=== PATIENT | male | born 1970 | race Hispanic/Latino ===

== ENCOUNTER 2018-08-02 11:07 | Emergency (ER) | payer SELFPAY ==
[2018-08-02] MEDS ORDERED: BUPIVACAINE 0.25% PF 10 ML VIAL ONE (11:58)
[2018-08-02] MEDS ORDERED: CEFTRIAXONE 1000 MG/VIAL ONE (11:58)
[2018-08-02] MEDS ORDERED: LIDOCAINE 1% MPF 5 ML VIAL ONE (11:58)
[2018-08-02] MEDS ORDERED: TETANUS & DIPHTHERIA TOX,ADULT 0.5 ML VIAL ONE (11:59)
--- NOTE | 2018-08-02 12:22 | EDPHYS ---
Physician Documentation [facility] Name: Beau Barnes Age: 48 yrs Sex: Male : 1970 Arrival Date: 08/02/2018 Time: 11:09 Bed 10 Private MD: ED Physician Alexi Lopze HPI: 08/02 12:12 This 48 yrs old Male presents to ER via Ambulatory with complaints of Finger gs Injury. 12:12 The patient or guardian reports injury, amputation of finger tip. The complaints affect gs the DIP of right index finger. Context: resulted from a direct blow, rope or cable. Onset: The symptoms/episode began/occurred yesterday. Associated signs and symptoms: Pertinent negatives: fever. Associated signs and symptoms: Pertinent negatives: active bleeding. Severity of symptoms: At their worst the symptoms were severe, in the emergency department the symptoms are unchanged. The patient has not experienced similar symptoms in the past. Historical: - Allergies: 12:00 NKA; iw - Home Meds: 12:00 enalapril maleate 10 mg Oral tab 1 tab 2 times per day [Active]; iw - PMHx: 12:00 Hypertension; iw - PSHx: 12:00 back; iw - Immunization history:: Adult Immunizations unknown. - Social history:: Smoking status: Patient/guardian denies using tobacco. - Ebola Screening: : Patient negative for fever greater than or equal to 101.5 degrees Fahrenheit, and additional compatible Ebola Virus Disease symptoms Patient denies exposure to infectious person Patient denies travel to an Ebola-affected area in the 21 days before illness onset No symptoms or risks identified at this time. ROS: 12:12 All other systems are negative. gs Exam: 12:12 Head/Face: Normocephalic, atraumatic. Neck: Trachea midline, no thyromegaly or masses gs palpated, and no cervical lymphadenopathy. Supple, full range of motion without nuchal rigidity, or vertebral point tenderness. No Meningismus. Cardiovascular: Regular rate and rhythm with a normal S1 and S2. No gallops, murmurs, or rubs. Normal PMI, no JVD. No pulse deficits. Respiratory: Lungs have equal breath sounds bilaterally, clear to auscultation and percussion. No rales, rhonchi or wheezes noted. No increased work of breathing, no retractions or nasal flaring. Abdomen/GI: Soft, non-tender, with normal bowel sounds. No distension or tympany. No guarding or rebound. No evidence of tenderness throughout. Back: No spinal tenderness. No costovertebral tenderness. Full range of motion. Skin: Warm, dry with normal turgor. Normal color with no rashes, no lesions, and no evidence of cellulitis. Neuro: Awake and alert, GCS 15, oriented to person, place, time, and situation. Cranial nerves II-XII grossly intact. Motor strength 5/5 in all extremities. Sensory grossly intact. Cerebellar exam normal. Normal gait. 12:12 Constitutional: The patient appears alert, awake, uncomfortable. 12:12 Musculoskeletal/extremity: Extremities: full amputation just above r second pip, has pretty good bone coverage, and may be able to keep distal joint with a skin graft, Pulses: are normal with no appreciated deficits, Sensation intact. Vital Signs: 12:00 BP 154 / 74; Pulse 84; Resp 16; Temp 98.2; Pulse Ox 100% on R/A; Pain 5/10; iw Procedures: 12:12 Nerve block: (digital) of r index base. Medication: .25 marcaine, Amount: 2 mls were gs injected, Performed by Alexi Lopez MD. MDM: 11:38 Patient medically screened. gs 12:12 Data reviewed: vital signs, nurses notes. ED course: wound cleaned, pt wants to get gs treated definitively at his home area. 08/02 11:39 Order name: Hand Right 3 View XRAY; Complete Time: 12:45 gs Administered Medications: 11:58 Drug: Tetanus-Diphtheria Toxoid Adult 0.5 ml {Detention Attendant: [employer]. Exp: iw 06/19/2020. Lot #: [id number]. } Route: IM; Site: left deltoid; 12:00 Follow up: Response: No adverse reaction iw 12:05 Follow up: Response: No adverse reaction iw 11:58 Drug: Rocephin (cefTRIAXone) 1 grams Route: IM; Site: left gluteus; iw 12:10 Follow up: Response: No adverse reaction iw 12:10 Follow up: Response: No adverse reaction iw 12:15 Drug: Marcaine (0.25 %) 2 ml Route: Infiltration; iw 12:30 Follow up: Response: No adverse reaction iw Disposition: 08/02/18 12:22 Discharged to Home. Impression: amputation distal phalanx right index. - Condition is Stable. - Discharge Instructions: Traumatic Finger Amputation. - Prescriptions for Keflex 500 mg Oral Capsule - take 1 capsule by ORAL route every 8 hours for 7 days; 21 capsule. Tylenol- Codeine #4 300-60 mg Oral Tablet - take 1 tablet by ORAL route every 6 hours As needed; 10 tablet. - Medication Reconciliation Form, Thank You Letter, Antibiotic Education, Prescription Opioid Use form. - Follow up: Donnell Gaines MD; When: 2 - 3 days; Reason: Re-evaluation by your physician. Signatures: Dispatcher [employer] Lexis Avendano RN RN iw Alexi Lopez MD MD gs Corrections: (The following items were deleted from the chart) 12:54 12:22 08/02/2018 12:22 Discharged to Home. Impression: amputation distal phalanx right iw index. Condition is Stable. Forms are Medication Reconciliation Form, Thank You Letter, Antibiotic Education, Prescription Opioid Use. Follow up: Donnell Gaines; When: 2 - 3 days; Reason: Re-evaluation by your physician. gs
--- NOTE | 2018-08-02 12:22 | ER ---
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 11:33 Transition of care: patient was not received from another setting of care. Onset of iw symptoms was August 01, 2018. Risk Assessment: Do you want to hurt yourself or someone else? Patient reports no desire to harm self or others. Initial Sepsis Screen: Does the patient meet any 2 criteria? No. Patient's initial sepsis screen is negative. Does the patient have a suspected source of infection? No. Patient's initial sepsis screen is negative. Care prior to arrival: None. 11:33 Method Of Arrival: Ambulatory iw 11:33 Acuity: SAMMIE 3 iw Historical: - Allergies: 12:00 NKA; iw - Home Meds: 12:00 enalapril maleate 10 mg Oral tab 1 tab 2 times per day [Active]; iw - PMHx: 12:00 Hypertension; iw - PSHx: 12:00 back; iw - Immunization history:: Adult Immunizations unknown. - Social history:: Smoking status: Patient/guardian denies using tobacco. - Ebola Screening: : Patient negative for fever greater than or equal to 101.5 degrees Fahrenheit, and additional compatible Ebola Virus Disease symptoms Patient denies exposure to infectious person Patient denies travel to an Ebola-affected area in the 21 days before illness onset No symptoms or risks identified at this time. Vital Signs: 12:00 BP 154 / 74; Pulse 84; Resp 16; Temp 98.2; Pulse Ox 100% on R/A; Pain 5/10; iw ED Course: 11:09 Patient arrived in ED. rg4 11:28 Lexis Barrett RN is Primary Nurse. iw 11:31 Alexi Lopez MD is Attending Physician. gs 11:35 Triage completed. iw 11:55 X-ray completed. Portable x-ray completed in exam room. Patient tolerated procedure ka well. 11:56 Hand Right 3 View XRAY In Process Unspecified. EDMS 12:19 Donnell Gaines MD is Referral Physician. gs Administered Medications: 11:58 Drug: Tetanus-Diphtheria Toxoid Adult 0.5 ml {Radiologic Technology Program Director: [employer]. Exp: iw 06/19/2020. Lot #: [id number]. } Route: IM; Site: left deltoid; 12:00 Follow up: Response: No adverse reaction iw 12:05 Follow up: Response: No adverse reaction iw 11:58 Drug: Rocephin (cefTRIAXone) 1 grams Route: IM; Site: left gluteus; iw 12:10 Follow up: Response: No adverse reaction iw 12:10 Follow up: Response: No adverse reaction iw 12:15 Drug: Marcaine (0.25 %) 2 ml Route: Infiltration; iw 12:30 Follow up: Response: No adverse reaction iw Outcome: 12:22 Discharge ordered by . gs 12:54 Patient left the ED. iw Signatures: Dispatcher [employer] EDMS Lexis Barrett, RN RN iw Caren Reese Rubi rg4 Alexi Lopez MD MD gs Corrections: (The following items were deleted from the chart) 11:35 11:31 Presenting complaint: iw iw
--- NOTE | 2018-08-02 12:45 | RAD REPORT ---
EXAM DESCRIPTION: RAD - Hand Right 3 View - 08/02/2018 12:01 pm CLINICAL HISTORY: Right hand pain status post injury FINDINGS: Amputation involves portion of the second distal phalanx. No dislocation seen
== END 2018-08-02 12:54 | disposition home or self-care (01) ==
LOC: ER 11:07
PROC: 3E0T3BZ Introduction of Anesthetic Agent into Peripheral Nerves and Plexi, Percutaneous Approach (ICD-10-PCS; principal; 2018-08-02)
DX: S68.120A Partial traumatic metacarpophalangeal amputation of right index finger, initial encounter (principal); W45.8XXA Other foreign body or object entering through skin, initial encounter; Y92.814 Boat as the place of occurrence of the external cause; Y99.0 Civilian activity done for income or pay; Z23 Encounter for immunization; I10 Essential (primary) hypertension; Z79.899 Other long term (current) drug therapy
CPT/HCPCS: 64450; 90714; 96372; 99283